=== PATIENT | male | born 1980 | race Caucasian/White ===

== ENCOUNTER 2023-03-04 17:04 | Outpatient (CLI) | payer BC, SELFPAY | END 2023-03-04 17:05 | disposition home or self-care (01) | LOC: NFLDREF 03-08 12:26 | PROVIDERS: Visit Provider Nurse Practitioner Family | DX: Z79.899 Other long term (current) drug therapy (principal); F41.9 Anxiety disorder, unspecified | CPT/HCPCS: 80053; 82306; 84443 ==